=== PATIENT | male | born 1950 | race Caucasian/White ===

== ENCOUNTER 2017-05-22 16:34 | Emergency (ER) | payer OTHER, MEDICAID ==
[~2017-05-22] VITALS: Ht 170.2 cm; Wt 93.5 kg
[2017-05-22 16:37] VITALS: Ht 170.2 cm; Wt 93.5 kg
[2017-05-22] MEDS ORDERED: FAMOTIDINE 20 MG INJ IV STA (18:26)
[2017-05-22] MEDS ORDERED: SOD CHLORIDE 0.9% 1,000 ML IV STA (18:26)
[2017-05-22] MEDS ORDERED: ONDANSETRON 4 MG INJ IV STA (18:26)
[2017-05-22 18:52] LABS: BASOPHIL # 0.1 10^3/ul (0.0-0.1); BASOPHILS % 0.9 % (0.0-2.0); EOSINOPHILS # 0.2 10^3/ul (0.0-0.5); EOSINOPHILS % 1.9 % (0.0-7.0); HEMATOCRIT 39.4 % (42.0-52.0); HEMOGLOBIN 13.9 g/dl (14.0-18.0); LYMPHOCYTES # 3.4 10^3/ul (0.8-2.9); LYMPHOCYTES % 42.9 % (15.0-51.0); MEAN CORPUSCULAR HEMOGLOBIN 31.5 pg (29.0-33.0); MEAN CORPUSCULAR HGB CONC 35.3 g/dl (32.0-37.0); MEAN CORPUSCULAR VOLUME 89.3 fl (82.0-101.0); MEAN PLATELET VOLUME 10.6 fl (7.4-10.4); MONOCYTE # 0.6 10^3/ul (0.3-0.9); MONOCYTES % 7.9 % (0.0-11.0); NEUTROPHILS % 45.9 % (39.0-77.0); PLATELET COUNT 159 10^3/UL (140-415); RED BLOOD COUNT 4.41 10^6/ul (4.70-6.10); RED CELL DISTRIBUTION WIDTH 12.1 % (11.5-14.5); WHITE BLOOD COUNT 7.8 10^3/ul (4.8-10.8)
[2017-05-22 18:58] LABS: ADD UMIC NO; UR ASCORBIC ACID NEGATIVE (NEGATIVE); UR BILIRUBIN (Dip) NEGATIVE (NEGATIVE); UR BLOOD (Dip) NEGATIVE (NEGATIVE); UR CLARITY CLEAR (CLEAR); UR COLOR STRAW (YELLOW); UR GLUCOSE (Dip) NEGATIVE (NEGATIVE); UR KETONES (Dip) TRACE mg/dL (NEGATIVE); UR LEUKOCYTE ESTERASE (Dip) NEGATIVE Leu/ul (NEGATIVE); UR NITRITE (Dip) NEGATIVE (NEGATIVE); UR SPECIFIC GRAVITY (Dip) 1.008 (1.003-1.030); UR TOTAL PROTEIN (Dip) NEGATIVE (NEGATIVE); UR UROBILINOGEN (Dip) NEGATIVE (NEGATIVE)
[2017-05-22 19:12] LABS: INR 0.94; PROTIME 12.6 Sec (12.2-14.2)
[2017-05-22 19:13] LABS: PARTIAL THROMBOPLASTIN TIME 27.7 Sec (25.0-35.0)
[2017-05-22 19:18] LABS: ALANINE AMINOTRANSFERASE 36 IU/L (13-69); ALBUMIN/GLOBULIN RATIO 1.33; ALKALINE PHOSPHATASE 73 IU/L (42-121); ANION GAP 13 (8-16); ASPARTATE AMINO TRANSFERASE 21 IU/L (15-46); BILIRUBIN,INDIRECT 0.2 mg/dl (0-1.1); BILIRUBIN,TOTAL 0.2 mg/dl (0.2-1.3); BLOOD UREA NITROGEN 12 mg/dl (7-20); CALCIUM 8.9 mg/dl (8.4-10.2); CARBON DIOXIDE 27 mmol/L (21-31); CHLORIDE 103 mmol/L (97-110); CREATININE 0.81 mg/dl (0.61-1.24); GLUCOSE 96 mg/dl (70-220); SODIUM 139 mmol/L (135-144)
[2017-05-22 19:36] LABS: TROPONIN-I < 0.012 ng/ml (0.00-0.12)
--- NOTE | 2017-05-22 19:52 | RADRPT ---
PROCEDURE: CT ABDOMEN AND PELVIS WITHOUT CONTRAST: CLINICAL INDICATION: 67 years of age, male , abdominal pain. COMPARISON: None available. TECHNIQUE: CT of the abdomen and pelvis was performed without intravenous contrast. Oral contrast wa s not administered prior to the examination. Coronal and sagittal reformatted images were obtained from the axial source images. Images were revi ewed on a high-resolution PACS workstation. Dose information: Based on a 32 cm phantom, the estimated radiation dose (CTDI vol mGy) for each ser ies in this exam is 18.2. The estimated cumulative dose (DLP mGy-cm) is 1099. One or more of the following dose reduction techniques were used: - Automated exposure control. - Adjustment of the mA and/or kV according to patient size. - Use of iterative reconstruction technique. FINDINGS: In the absence of intravenous contrast, the study constitutes a limited assessment of the solid orga ns, bowel and vessels. LUNG BASES: There is fine reticulation in the subpleural lung at bilateral lung bases likely due to mild interstitial lung disease. Coronary artery and aortic valve calcification. Enlargement of rig ht heart. ABDOMEN/PELVIS: Liver: Normal noncontrast appearance. Gallbladder: Normal noncontrast appearance. Bile ducts: No intrahepatic or extrahepatic biliary duct dilatation. Spleen: Normal noncontrast appearance. Pancreas: Normal noncontrast appearance. Adrenal glands: Normal noncontrast appearance. Kidneys and ureters: Small scarred right kidney. Left kidney is normal size. There is a parapelvic cyst in the lower pole of the left kidney. Negative for urinary calculi or hydronephrosis. Aorta and IVC: Atherosclerotic calcification and tortuosity of the abdominal aorta and iliac vessels . Negative for aortic aneurysm. Lymph nodes: Normal noncontrast appearance. Gastrointestinal tract: Sigmoid colon diverticulosis without diverticulitis. Bowel loops are decomp ressed. Appendix: Normal Bladder: Normal noncontrast appearance. Pelvic Organs: Enlarged prostate gland indents bladder base. Seminal vesicles are symmetrical. Peritoneal cavity: No free fluid or free intraperitoneal air. Abdominal wall: Normal noncontrast appearance. BONES: Musculoskeletal: Multilevel degenerative changes in spine. No suspicious bone lesions. IMPRESSION: Sigmoid colon diverticulosis without diverticulitis. Small scarred right kidney. Negative for urinary calculi or hydronephrosis. RPTAT: HCTS Janine Sánchez, Physician Date Time Electronically viewed and signed by Janine Sánchez, Physician on 05/22/2017 19:51 /
--- NOTE | 2017-05-22 19:59 | ERD ---
ER Documentation Chief Complaint Date/Time DATE: 05/22/17 TIME: 19:55 Chief Complaint ABD PAIN WITH N/V X 3 DAYS HPI This is a 67-year-old male who presents to the emergency room for evaluation of nausea, vomiting and one episode of diarrhea over the past 2 days. The patient states he vomited twice over the past 2 days and denies any blood in his vomit or in his stool. The patient localizes abdominal pain to the lower portion of abdomen states that he is not having any active pain at this time however when he had diarrhea he did have some abdominal pain and he wants to be evaluated. ROS All systems reviewed and are negative except as per history of present illness. PMhx/Soc Hx Alcohol Use: Yes Hx Substance Use: No Hx Tobacco Use: No Smoking Status: Former smoker Physical Exam Vitals Vital Signs Date Time Temp Pulse Resp B/P Pulse Ox O2 Delivery O2 Flow Rate FiO2 05/22/17 19:00 75 22 131/85 99 Room Air 05/22/17 18:45 81 24 118/88 100 Room Air 05/22/17 16:37 98.4 94 20 136/82 98 Physical Exam INITIAL VITAL SIGNS: Reviewed by me GENERAL: The patient is well developed and appropriate for usual state of health in no apparent distress HEENT: Pupils equal, round, and reactive to light. EOMI. There is no scleral icterus. NECK: C-spine is soft and supple, there is no meningismus. There is no cervical lymphadenopathy. LUNGS: Clear to auscultation bilaterally. There are no rales, wheezes or rhonchi. HEART: Regular rate and rhythm, no murmurs, clicks, rubs or gallops. ABDOMEN: Mild suprapubic tenderness to palpation,Soft, non-tender, non- distended. There are bowel sounds in all four quadrants. No rebound or guarding. EXTREMITIES: There is no peripheral cyanosis or edema. No focal swelling or erythema. NEUROLOGICAL: The patient moves all four extremities with 5/5 strength. Cranial nerves II - XII are intact. Normal gait. Alert and oriented SKIN: There is no apparent rash or petechiae. HEME/LYMPHATIC: There is no evidence of excessive bruising or lymphedema. PSYCHIATRIC: The patient does not appear anxious or depressed. Result Diagram: 05/22/17183905/22/171839 Results 24 hrs Laboratory Tests Test 05/22/17 18:40 White Blood Count 7.810^3/ul Red Blood Count 4.4110^6/ul Hemoglobin 13.9g/dl Hematocrit 39.4% Mean Corpuscular Volume 89.3fl Mean Corpuscular Hemoglobin 31.5pg Mean Corpuscular Hemoglobin Concent 35.3g/dl Red Cell Distribution Width 12.1% Platelet Count 72036^3/UL Mean Platelet Volume 10.6fl Neutrophils % 45.9% Lymphocytes % 42.9% Monocytes % 7.9% Eosinophils % 1.9% Basophils % 0.9% Nucleated Red Blood Cells % 0.0/100WBC Neutrophils # (Manual) 3.610^3/ul Lymphocytes # 3.410^3/ul Monocytes # 0.610^3/ul Eosinophils # 0.210^3/ul Basophils # 0.110^3/ul Nucleated Red Blood Cells # 0.010^3/ul Prothrombin Time 12.6Sec Prothrombin Time Ratio 1.0 INR International Normalized Ratio 0.94 Activated Partial Thromboplast Time 27.7Sec Urine Color STRAW Urine Clarity CLEAR Urine pH 6.0 Urine Specific [place] 1.008 Urine Ketones TRACEmg/dL Urine Nitrite NEGATIVEmg/dL Urine Bilirubin NEGATIVEmg/dL Urine Urobilinogen NEGATIVEmg/dL Urine Leukocyte Esterase NEGATIVELeu/ul Urine Hemoglobin NEGATIVEmg/dL Urine Glucose NEGATIVEmg/dL Urine Total Protein NEGATIVEmg/dl Sodium Level 139mmol/L Potassium Level 4.0mmol/L Chloride Level 103mmol/L Carbon Dioxide Level 27mmol/L Anion Gap 13 Blood Urea Nitrogen 12mg/dl Creatinine 0.81mg/dl Glucose Level 96mg/dl Calcium Level 8.9mg/dl Total Bilirubin 0.2mg/dl Direct Bilirubin 0.00mg/dl Indirect Bilirubin 0.2mg/dl Aspartate Amino Transf (AST/SGOT) 21IU/L Alanine Aminotransferase (ALT/SGPT) 36IU/L Alkaline Phosphatase 73IU/L Troponin I < 0.012ng/ml Total Protein 7.0g/dl Albumin 4.0g/dl Globulin 3.00g/dl Albumin/Globulin Ratio 1.33 Lipase 168U/L Current Medications Medications (Trade) Dose Ordered Sig/Pilar Route PRN Reason Start Time Stop Time Status Last Admin Dose Admin Sodium Chloride (NS) 1,000 ml @ 1,000 mls/hr Q1H STAT IV 05/22/17 18:26 05/22/17 19:25 DC 05/22/17 19:01 Ondansetron HCl (Zofran Inj) 4 mg ONCE STAT IV 05/22/17 18:26 05/22/17 18:27 DC 05/22/17 19:01 Famotidine (Pepcid Iv) 20 mg ONCE STAT IV 05/22/17 18:26 05/22/17 18:27 DC 05/22/17 19:01 Procedures/MDM CT abdomen pelvis without IV contrast:Sigmoid colon diverticulosis without diverticulitis. Small scarred right kidney. Negative for urinary calculi or hydronephrosis. EKG: Rate/Rhythm: Atrial fibrillation QRS, ST, T-waves: [No changes consistent w/ acute ischemia] Impression: Atrial fibrillation This 67-year-old male presents to the emergency room for valuation of abdominal cramping. On my examination the patient had no acute tenderness or peritoneal signs on my examination. The patient had lab work drawn including a urinalysis all of which is normal. His CT abdomen pelvis is normal. The patient is hemodynamically stable and was given Zofran in the ER with complete resolution of symptoms. The patient will be discharged home with a prescription for Zofran. Differential diagnoses entertained was broad with potential high acuity. Patient has been evaluated for appendicitis, cholecystitis, and other high risk medical and surgical causes of abdominal pain. Ultimately the patient 's evaluation is nondiagnostic. Based on the patient's lack of risk factors, as well as the patient's clinical, laboratory, and imaging data, the patient appears to be low risk for these high risk causes of abdominal pain. Departure Diagnosis: Primary Impression: Abdominal pain Condition: Stable JAXSON FONG May 22, 2017 19:59
[2017-05-22] MEDS ORDERED: ONDA4TAB8 PO (20:02)
[2017-05-22 20:11] VITALS: BP 128/85; PULSE 74; RESP 18
== END 2017-05-22 20:12 | disposition home or self-care (01) ==
LOC: E/R 16:34
DX: R10.30 Lower abdominal pain, unspecified (principal); R11.2 Nausea with vomiting, unspecified; Z87.891 Personal history of nicotine dependence
CPT/HCPCS: 36415; 74176; 80053; 81003; 83690; 84484; 85025; 85610; 85730; 93005; 96374; 96375; 99285; J2405; J7030